=== PATIENT | male | born 1960 | race Caucasian/White ===

== ENCOUNTER → 2024-01-25 06:57 | Outpatient (REF) | payer BC, SELFPAY | LOC: RAD 06:57 | PROVIDERS: ATTENDING PHYSICIAN Family Medicine | DX: R09.89 Other specified symptoms and signs involving the circulatory and respiratory systems (principal); M79.671 Pain in right foot; M79.672 Pain in left foot; E10.22 Type 1 diabetes mellitus with diabetic chronic kidney disease | CPT/HCPCS: 93922; 93925 ==

== ENCOUNTER 2024-03-28 21:59 | Inpatient (IN) | payer BC, SELFPAY ==
[2024-03-28] VITALS (7 sets, daily range): BP systolic 154–191; BP diastolic 54–92; BMI 20.6; BMI 19.2
[2024-03-28 15:42] LABS: Glucose - Point of Care 384 mg/dl (70-99)
--- NOTE | 2024-03-28 15:55 | ED.GENMED ---
History of Present Illness
General
Chief Complaint: Blood Sugar Problem
Time Seen by Provider: 03/28/24 15:55
History of Present Illness
History of Present Illness:
TIME OF INITIAL ENCOUNTER: 4 PM
HPI: The patient is concerned of high blood sugar readings on insulin pump. He changes pump yesterday and started having symptoms after he changed the pump. He changed his pump again today. He bolused himself with a total of 32 units of insulin
since 2 AM today. He has been having hiccups which caused his to be concerned about the possibly of DKA. He has ongoing nausea. He had a kidney transplant a year ago.
EXAM:
GENERAL: The patient appears somewhat weak and uncomfortable
HEENT: Moist oral mucosa
CARDIOVASCULAR: No murmurs, normal heart rate, regular rhythm, No chest wall tenderness
PULMONARY: No respiratory distress, breath sounds are clear and equal
ABDOMEN: Soft with no peritoneal signs, no tenderness
NEUROLOGIC: Excellent strength all extremities, no coordination deficits
PSYCHIATRIC: Appropriate mental status, normal insight and judgement
EXTREMITIES: Nontender, no edema, moves all extremities equally
SKIN: No rash, no lesions
NUMBER AND COMPLEXITY OF PROBLEMS ADDRESSED AT THE ENCOUNTER
� Chronic conditions affecting care: IDDM on insulin pump, renal transplant
� Acute Exacerbation and/or Progression of Chronic Illness: This is an acute problem
� Differential Diagnosis includes: DKA, insulin pump malfunction, hyperglycemia, DELON, dehydration
AMOUNT AND/OR COMPLEXITY OF DATA TO BE REVIEWED AND ANALYZED
� I performed an independent evaluation of and my interpretation is:
EKG:
CT:
X-rays:
Laboratory Studies: Venous pH 7.41, pCO2 45, PaO2 39, white count 14.7, hemoglobin 16.1, BUN 46, creatinine 1.9, bicarb normal at 24
Other:
� Review of other/old records: I reviewed discharge summary from admission from last year�at that time he was ESRD on PD and treated for DKA at that time
� Clinical information was obtained by an independent historian: Spoke to the at bedside
� Prescriptions/Medications Considered but not given:
� Further testing considered but not performed:
RISK OF COMPLICATIONS AND/OR MORBIDITY OR MORTALITY OF PATIENT MANAGEMENT
� Social determinants of health affecting care: Lives at home, has an insulin pump
� Discussion with other providers: Hospitalist for admission at 8:05 PM, Dr. Uribe
� Escalation of care including admission/observation vs risk of discharge considered: See below
ANY OTHER UPDATES:
5:10 PM: The patient feels only minimally improved. Nausea persists. However there is no sign for DKA as his bicarb and pH are normal. Acetone is somewhat elevated though. His creatinine is 1.9 and family states that his most recent creatinine
after transplant was 1.7. He is given 2 L of fluid. He was given Zofran earlier and then was given Reglan with Benadryl.
7:40 PM: I assessed patient. Nausea persists. I offered to consider keeping the patient in the hospital however the patient strongly prefers to go home. He has no abdominal tenderness.
8 PM: After further discussion, patient now agreeing to stay in the hospital. I do recommend that he stays in the hospital as he is somewhat ill-appearing. And overall appearance
Past History
Past History
ED Past Medical History: HTN, IDDM and Renal failure
Social History
Tobacco: Non-smoker
Alcohol: None
Phy Exam
Physical Exam
Physical Exam:
See HPI
Course
Orders/Labs/Results
Orders:
Orders
03/28/24 15:57
0.9% Sodium Chloride 1000 ml [Nss] 1,000 ml IV BOLUS
03/28/24 16:04
Acetone [B-Hydroxybutyrate] Urgent
Complete Blood Count/With Diff Urgent
Comprehensive Metabolic Panel Urgent
03/28/24 16:06
Ondansetron Injectable [Zofran] 4 mg IV NOW STA
03/28/24 16:07
Ondansetron Injectable [Zofran] 4 mg .ROUTE .STK-MED ONE
03/28/24 16:11
Venous Blood Gas Urgent
%Oxygen/Room Air: room air
03/28/24 17:21
0.9% Sodium Chloride 1000 ml [Nss] 1,000 ml IV BOLUS
Diphenhydramine [Benadryl] 25 mg IV NOW STA
Metoclopramide [Reglan] 10 mg IV NOW STA
03/28/24 17:24
Bedside Glucose- Treatment ONCE
03/28/24 19:31
Ondansetron Injectable [Zofran] 4 mg IV NOW STA
Abnormal Lab Results
03/28/24 03/28/24 03/28/24
15:40 16:04 16:11
WBC 14.7 H 10^3/uL
(4.8-10.8)
Abs Immat Gran (auto) 0.1 H 10^3/uL
(0-0.05)
Absolute Neuts (auto) 13.3 H 10^3/uL
(1.4-6.5)
Absolute Lymphs (auto) 0.7 L 10^3/uL
(1.2-3.4)
Neutrophils % 90.5 H %
(42.2-75.2)
Lymphocytes % 4.8 L %
(20.5-51.1)
VBG HCO3 28.5 H mmol/L
(22-27)
Chloride 97 L mmol/L
(98-107)
BUN 46 H mg/dl
(9-20)
Creatinine 1.9 H mg/dL
(0.7-1.3)
Glucose 401 H mg/dl
(70-99)
Calcium 10.3 H mg/dl
(8.4-10.2)
Albumin 5.2 H g/dl
(3.5-5.0)
B-Hydroxybutyrate 1.67 H mmol/L
(0.02-0.27)
POC Glucose 384 H mg/dl
(70-99)
03/28/24
17:50
WBC
Abs Immat Gran (auto)
Absolute Neuts (auto)
Absolute Lymphs (auto)
Neutrophils %
Lymphocytes %
VBG HCO3
Chloride
BUN
Creatinine
Glucose
Calcium
Albumin
B-Hydroxybutyrate
POC Glucose 261 H mg/dl
(70-99)
03/28/24 16:04
03/28/24 16:04
Vital Signs
Initial and Last Documented VS:
Initial Vital Signs
Temp Pulse Resp BP Pulse Ox
36.7 C 76 16 177/85 98
03/28/24 15:36 03/28/24 15:36 03/28/24 15:36 03/28/24 15:36 03/28/24 15:36
Last Documented Vital Signs
Temp Pulse Resp BP Pulse Ox
36.9 C 86 19 175/92 99
03/28/24 18:04 03/28/24 18:30 03/28/24 18:30 03/28/24 18:01 03/28/24 18:30
*Critical Care Note
Total Time (30-74mins, 75-104mins- exclusive of procedures): Not Applicable
ED Attending Note
-
Portions of this chart may have been created with voice recognition software.� Occasional wrong word or��sound alike� substitutions may have occurred due to the inherent limitations of voice recognition software.
Discharge Plan
Departure
Patient Disposition: Admit
Date of Disposition: 03/28/24
Time of Disposition: 19:35
Presentation/result/management discussed w/ accepting MD/DO: Hospitalist
Patient with high blood pressure during this ER visit?: Yes
Discharge Problem:
Nausea & vomiting
Instructions: BLOOD PRESSURE, Acute Nausea and Vomiting
Prescriptions:
New
ondansetron HCl 4 mg tablet
4 mg PO Q8H PRN (Reason: nausea and vomiting) Qty: 14 0RF
No Action
furosemide 40 mg Tablet
80 mg PO BID
atorvastatin 20 mg Tablet
20 mg PO HS
labetalol 200 mg Tablet
200 mg PO BID
gabapentin 300 mg Capsule
300 mg PO HS
hydralazine 50 mg tablet
50 mg PO BID
Pt Own Insulin Pump
1 dose SC .CONTINUOUS
Patient Comments:
05/01/22 Per patient/pharmacy uses novolog insulin in pump. Counts carbs and gives himself a bolus with meals.Has basal
cephalexin 250 mg Capsule
250 mg PO . DIRECTED
Rx Instructions:
Take 1 capsule TID x 3 days for possible PD catheter contamination, as directed by PD nurse
tamsulosin 0.4 mg Capsule
0.4 mg PO DAILY Qty: 30 0RF
Referrals:
Javier Jason MD [Family Provider] -
Activity Restrictions/Additional Instructions:
The cause of your symptoms is unclear but could be related to earlier insulin pump malfunction or viral syndrome. Your white blood cell count is high however you do not have any tenderness on reexamination. Your creatinine is 1.9. We did give you
2 rounds of Zofran tonight as well as a dose of Reglan.
Interventions
Interventions:
*Risk Screen - Suicide Last Done: 03/28/24 15:36
*General Assessment Last Done: 03/28/24 16:02
*Neglect/Abuse Screening Last Done: 03/28/24 15:36
*ED COVID-19 Vaccine History Last Done: 03/28/24 16:02
ED- Neurological Assessment Last Done: 03/28/24 16:02
Discharge Date and Time
Print Language: CAMEROONIAN
[2024-03-28] MEDS: ZOFRAN 4 MG IV ×2 (16:07→20:18)
[2024-03-28] MEDS: NSS 1000 IV ×3 (16:08→21:52)
[2024-03-28 16:16] LABS: % Basophils 0.2 % (0-2); % Immature Granulocytes 0.4 % (0-0.5); % Lymphocytes 4.8 % (20.5-51.1); % Monocytes 4.1 % (1.7-9.3); % Neutrophils 90.5 % (42.2-75.2); Absolute Immature Granulocytes 0.1 10^3/uL (0-0.05); Absolute Lymphocytes 0.7 10^3/uL (1.2-3.4); Absolute Monocytes 0.6 10^3/uL (0.1-0.6); Absolute Neutrophils 13.3 10^3/uL (1.4-6.5); Hematocrit 48.6 % (39.0-52.0); Hemoglobin 16.1 g/dL (13.0-18.0); Mean Corp Hgb Conc. 33.1 g/dL (33.0-37.0); Mean Corpuscular Hgb 29.1 pg (27.0-31.0); Mean Corpuscular Volume 87.9 fL (80.0-94.0); Mean Platelet Volume 9.4 fL (7.4-10.4); Nucleated Red Blood Cells % 0 % (-); Platelet Count 264 10^3/uL (130-400); Red Blood Cell Count 5.53 10^6/uL (4.70-6.10); Red Cell Dist. Width 12.9 % (11.5-14.5); White Blood Cell Count 14.7 10^3/uL (4.8-10.8)
[2024-03-28 16:19] LABS: Venous Blood Gas B.E. 3.1 mmol/L (-4 to +4); Venous Blood Gas HCO3 28.5 mmol/L (22-27); Venous Blood Gas O2 Sat % 71.6 %; Venous Blood Gas pCO2 45 mmHg (35-48); Venous Blood Gas pH 7.41 (7.32-7.43); Venous Blood Gas pO2 39 mmHg (30-50)
[2024-03-28 16:28] LABS: ALT (SGPT) 38 U/L (0-50); AST (SGOT) 33 U/L (17-59); Albumin 5.2 g/dl (3.5-5.0); Alkaline Phosphatase 119 U/L (38-126); Blood Urea Nitrogen 46 mg/dl (9-20); Calcium 10.3 mg/dl (8.4-10.2); Carbon Dioxide 24 mmol/L (22-30); Chloride 97 mmol/L (98-107); Estimated Creatinine Clearance 38 ml/min; Glucose 401 mg/dl (70-99); Potassium 4.3 mmol/L (3.5-5.1); Sodium 137 mmol/L (135-145); Total Bilirubin 1.3 mg/dl (0.2-1.3); Total Protein 7.7 g/dl (6.3-8.2); eGFR 38.91
[2024-03-28 16:42] LABS: B-Hydroxybutyrate 1.67 mmol/L (0.02-0.27)
[2024-03-28] MEDS: BENADRYL 25 MG IV (17:49)
[2024-03-28] MEDS: REGLAN 10 MG IV (17:49)
[2024-03-28 17:52] LABS: Glucose - Point of Care 261 mg/dl (70-99)
[2024-03-28 21:16] LABS: Glucose - Point of Care 304 mg/dl (70-99)
--- NOTE | 2024-03-28 21:35 | HPS.HSE ---
Family Physician
-
Family Physician: Javier Jason
Chief Complaint
-
Vomiting and Elevated Blood Sugar
History of Present Illness
Patient is a 64 y/o male past medical history of IDDM, hypertension and renal transplant who presents with vomiting and elevated blood sugar. Patient reports he changed his insulin pump yesterday. Yesterday afternoon he started experiencing
elevated blood sugars and intractable vomiting. Symptoms persisted today and he changed his insulin pump again. Due to persistent vomiting he came to the emergency department for evaluation. He denies abdominal paim or diarrhea. He denies
fevers, sweats or chills.
Medical History
Past Medical History
Past Medical History: Reports Other
Additional Past Medical History:
ESRD s/p Renal Transplant
Insulin Dependent Diabetes Mellitus
Diabetic Neuropathy
Essential Hypertension
Hyperlipidemia
Past Surgical History: Reports Other
Additional Past Surgical History:
Renal Transplant
Social History
Tobacco: Non-smoker
Alcohol: Occasional
Personal:
Living: With Family
Family History
Family History: Not pertinent
Allergies / Home Medications
Allergies reflects when Allergies were last updated in [facility].
Home Medications with original date entered in [facility]
Allergy/Medication List:
Allergies
Allergy/AdvReac Type Severity Reaction Status Date / Time
No Known Allergies Allergy Verified 03/28/24 15:43
Home Medications
Pt Own Insulin Pump 1 dose SC .CONTINUOUS Diabetes 04/06/22
tamsulosin 0.4 mg capsule 0.4 mg PO DAILY #30 caps 08/19/22
atorvastatin 10 mg tablet 10 mg PO HS 03/28/24
gabapentin 100 mg capsule 100 mg PO DAILY 03/28/24
gabapentin 100 mg capsule 200 mg PO QPM 03/28/24
losartan 50 mg tablet 50 mg PO DAILY 03/28/24
prednisone 2.5 mg tablet 7.5 mg PO DAILY 03/28/24
tacrolimus 4 mg tablet,extended release 24 hr 4 mg PO DAILY 03/28/24
Review of Systems
-
A 12 point ROS was completed and negative except as noted: Yes
Constitutional: Denies Fever or Chills
Respiratory: Denies Cough or Trouble Breathing
Cardiac: Denies Chest Pain or Palpitations
Abdomen/GI: Reports See HPI
Physical Exam
Vital Signs
Vital Signs
Temp Pulse Resp BP Pulse Ox
98.5 F 83 20 173/67 97
03/28/24 18:04 03/28/24 20:45 03/28/24 20:45 03/28/24 20:00 03/28/24 19:30
Physical Exam
General: Comfortable and Conversant
HEENT: NormoCephalic, Anicteric and Atraumatic
Respiratory: Clear and Non Labored Respirations
Cardiac: S1/S2 and Regular Rhythm
GI: Soft and Non Tender
Rectal: Deferred by Provider
Musculoskeletal: No Clubbing, No Cyanosis and No Edema
Skin: Warm and Dry
Neuro: Awake, Alert, Oriented and Nonfocal/grossly intact
Psych: Calm
Laboratory Results
-
03/28/24 16:04
03/28/24 16:04
Laboratory Results
Total Bilirubin 1.3 mg/dl (0.2-1.3) 03/28/24 16:04
AST 33 U/L (17-59) 03/28/24 16:04
ALT 38 U/L (0-50) 03/28/24 16:04
Alkaline Phosphatase 119 U/L (38-126) 03/28/24 16:04
Data Reviewed
-
Lab Data: Labs Reviewed by me
Old Records: Reviewed
Impression/Plan
-
Hyperosmolar Hyperglycemic State secondary to Insulin Pump Malfunction
-Insulin pump tubing exchanged prior to arrival and sugars are now improving
-Continue patient's own insulin pump
-Continue IVFs
-Monitor sugars closely
Persistent Vomiting, now improving
-Allow sips/chips - Advance to clears if tolerates
-Continue Zofran
-Check tacrolimus level
Renal Transplant
-Continue prednisone and tacrolimus
Essential Hypertension
-Continue losartan
Hyperlipidemia
-Continue atorvastatin
Diabetic Neuropathy
-Continue gabapentin
BPH
-Continue tamsulosin
DVT proph: SC Heparin
Code Status: Full Code
[2024-03-28] MEDS: FLUSH (NSS) 1 FLUSH IV (21:53)
--- NOTE | 2024-03-28 21:59 | W.PN.UPDATE ---
Update Note
Progress Note Update
Patient seen in conjunction with ARIEL. I agree with the final history and physical as well as assessment and plan.
This is a 64-year-old male who has end-stage kidney disease status post kidney transplant about a year ago currently on tacrolimus and prednisone with a baseline creatinine of around 1.5 on last check who also has past medical history significant
for hypertension and type 1 diabetes on insulin pump presenting to the emergency department with persistent nausea vomiting and hyperglycemia.
Patient apparently had been in usual state of health up until changing his insulin pump insertion yesterday. Since then his blood sugars has been rising to as high as 600 at home. He spouse had to give him up to 32 units of additional insulin. He
then changed the insertion site and gave himself insulin via pump before coming to the emergency department. He has not had additional insulin in the emergency department.
His initial blood glucose was 400, he is now at 300 after giving himself insulin via the pump. Vital signs showed hypertension with a blood pressure 170/60 pulse of 83 he was afebrile and satting 97% on room air. Leukocytosis to 14,000 but
otherwise CBC was unremarkable. The electrolytes were stable with a bicarb of 24, BUN of 46 and a creatinine of 1.7. Beta-hydroxybutyrate is elevated at 1.9 but patient has a normal bicarb and normal pH on ABG. No evidence of DKA otherwise.
Plan
Uncontrolled hyperglycemia 2/2 pump malfunction. Pump appears to be working now but patient needed several doses of antiemetics
- admit to med/surg
- sips and ice chips for now
- fingerstick glucose q 2 hours
- patient continue to use his pump for now with basal insulin running and giving himself sliding scale doses q 2 hours
- advance diet in am
- continue aggressive IV hydration
- continue tac/prednisone in am
- check tac level
- nephrology consult
DVT PPX - heparin sq
Code status - full code
[2024-03-28 23:04] LABS: Glucose - Point of Care 334 mg/dl (70-99)
[2024-03-28] MEDS: LIPITOR 10 MG PO (23:33)
[2024-03-28] MEDS: HEPARIN 5000 UNITS SC (23:33)
[2024-03-28] MEDS: PT'S OWN INSULIN PUMP - HumaLOG 5 UNIT SC (23:35)
[2024-03-29] VITALS (10 sets, daily range): BP systolic 124–177; BP diastolic 65–82
--- NOTE | 2024-03-29 00:19 | PTCARENOTE ---
Patient arrived to unit via stretcher around 23:00 with dx of Intractable Nausea, hyperglycemia. Patient AAOx3. Pleasant and cooperative with care. Denies pain but continues to feel nauseous. IVF infusing to Right AC. Oriented to unto. Call galvin
within reach.
[2024-03-29 01:19] LABS: Glucose - Point of Care 438 mg/dl (70-99)
[2024-03-29 01:56] LABS: Glucose 476 mg/dl (70-99)
[2024-03-29] MEDS: PT'S OWN INSULIN PUMP - HumaLOG 7.9 UNIT SC (02:03)
[2024-03-29] MEDS: ZOFRAN 4 MG IV ×4 (02:05→20:45)
[2024-03-29 03:16] LABS: Glucose - Point of Care 389 mg/dl (70-99)
[2024-03-29 05:07] LABS: Glucose - Point of Care 361 mg/dl (70-99)
[2024-03-29 06:41] LABS: Blood Urea Nitrogen 43 mg/dl (9-20); Calcium 9.4 mg/dl (8.4-10.2); Carbon Dioxide 19 mmol/L (22-30); Chloride 100 mmol/L (98-107); Estimated Creatinine Clearance 36 ml/min; Glucose 451 mg/dl (70-99); Sodium 142 mmol/L (135-145); eGFR 38.91
--- NOTE | 2024-03-29 07:09 | W.PN.UPDATE ---
Update Note
Progress Note Update
Patient glucose uncontrolled overnight. AM venous draw 451, Anion gap 23, consistent with mild DKA. Patient own insulin pump to be disconnected. Patient started on insulin gtt and transferred to IMU.
[2024-03-29] MEDS: NOVOLIN R INSULIN INFUSION 100 IV (08:17)
--- NOTE | 2024-03-29 08:30 | PTCARENOTE ---
Pt transferred to IMU for insulin drip per order. Traveled via bed, no distress noted. Report given to SIMON Barroso.
[2024-03-29 08:31] LABS: Glucose - Point of Care 474 mg/dl (70-99)
--- NOTE | 2024-03-29 08:45 | PTCARENOTE ---
patient received from [address] [facility] in bed; able to stand and pivot to IMU unit bed. flushed and mildly diaphoretic but afebrile. vital signs stable, sinus tachycardia in low 100's. IV fluids infusing at 150 ml/hr. awake, alert, oriented x 3. complaining
of nausea. accucheck 'hi' on arrival to unit; stat venous glucose resulted at 474. insulin drip initiated at 6 units/hr. zofran 4 mg given IV. patient oriented to the room. call galvin in reach. bed in lowest position. will continue to closely
monitor. Q1hr accuchecks with insulin drip titration. insulin pump off/removed by [address] nurse.
[2024-03-29 08:53] LABS: Blood Urea Nitrogen 45 mg/dl (9-20); Calcium 9.5 mg/dl (8.4-10.2); Carbon Dioxide 16 mmol/L (22-30); Chloride 100 mmol/L (98-107); Estimated Creatinine Clearance 32 ml/min; Glucose 552 mg/dl (70-99); Potassium 5.5 mmol/L (3.5-5.1); Sodium 142 mmol/L (135-145)
[2024-03-29 09:30] LABS: Glucose - Point of Care 437 mg/dl (70-99)
[2024-03-29] MEDS: NSS with KCL 20 MEQ 1000 IV (09:33)
[2024-03-29] MEDS: PT'S OWN INSULIN PUMP - HumaLOG SC (09:34)
[2024-03-29 09:55] LABS: Glucose 500 mg/dl (70-99)
--- NOTE | 2024-03-29 10:17 | W.PN.HOSP.TC ---
Today's Communication/Plan
-
see A/P
Assessment / Plan
Assessment / Plan
HPI: 64 y/o male past medical history of IDDM, hypertension and renal transplant who presented with vomiting and elevated blood sugar.
Patient reports he changed his insulin pump the day [employer]. In the afternoon he started experiencing elevated blood sugars and intractable vomiting.
Symptoms persisted and he changed his insulin pump again. Due to persistent vomiting he came to the emergency department for evaluation. He denies abdominal pain or diarrhea. He denies fevers, sweats or chills.
A/P:
# DKA with Anion gap metabolic acidosis, secondary to Insulin Pump Malfunction
Started insulin drip for DKA
check BMP Q4H until gap closes
NPO with IVF NSS for now (hold further NSS with K with mild hyperkalemia)
Consider replacing back to insulin pump when gap closes
# Persistent Vomiting
Continue Zofran PRN
# Renal Transplant
Continue prednisone and tacrolimus
Check tacrolimus level
# Essential Hypertension
Continue losartan
# Hyperlipidemia
Continue atorvastatin
# Diabetic Neuropathy
Continue gabapentin
# BPH
Continue tamsulosin
DVT proph: SC Heparin
Code Status: Full Code
DW RN
Anticipated Discharge: 24 - 48 hours
Subjective/Interval History
-
Date of Service: March 29, 2024
Objective Data
-
Labs:
Laboratory Results
03/29/24 03/29/24 03/29/24
01:27 06:13 08:14
Sodium 142 142
Potassium 5.0 5.5 H
Chloride 100 100
Carbon Dioxide 19 L 16 L
BUN 43 H 45 H
Creatinine 1.9 H 2.1 H
Glucose 476 H* 451 H* 552 H*
Calcium 9.4 9.5
03/29/24 03/29/24 03/29/24
09:26 14:00 18:00
Sodium Pending Pending
Potassium Pending Pending
Chloride Pending Pending
Carbon Dioxide Pending Pending
BUN Pending Pending
Creatinine Pending Pending
Glucose 500 H* Pending Pending
Calcium Pending Pending
03/29/24
22:00
Sodium Pending
Potassium Pending
Chloride Pending
Carbon Dioxide Pending
BUN Pending
Creatinine Pending
Glucose Pending
Calcium Pending
Vital Signs:
Vital Signs
Temp Pulse Resp BP Pulse Ox
36.7 C 104 18 171/82 98
03/29/24 03:31 03/29/24 03:31 03/29/24 03:31 03/29/24 03:31 03/29/24 03:31
I&O
03/28/24 03/29/24 03/30/24
06:59 06:59 06:59
Intake Total 980 / 980
Output Total 450 / 450 250 / 250
Balance 530 / 530 -250 / -250
Review of Systems
-
Abdomen/GI: Reports Nausea and Vomiting
Physical Exam
-
General: Well Developed, Well Nourished, No Apparent Distress and Comfortable
HEENT: Normocephalic and Atraumatic
Respiratory: Clear to Auscultation and Non Labored Respirations; Negative Wheezes or Accessory Resp Muscle Use
Cardiac: Regular Rhythm, S1/S2 and Tachycardic
Breast: Deferred by me
GI: Soft, Nontender and Nondistended
Rectal: Deferred by Provider
Genito-urinary: Deferred by me
Musculoskeletal: No Clubbing, No Cyanosis and No Edema
Skin: Warm
Neuro: Awake
Psych: Calm and Intact Judgement/Insight
Data Reviewed
-
Labs: Labs Reviewed by me
[2024-03-29] MEDS: NEURONTIN 100 MG PO (10:23)
[2024-03-29] MEDS: DELTASONE 7.5 MG PO (10:24)
[2024-03-29] MEDS: FLOMAX 0.4 MG PO (10:25)
[2024-03-29] MEDS: ENVARSUS XR 4 MG PO (10:25)
[2024-03-29] MEDS: HEPARIN 5000 UNITS SC ×2 (10:27→18:37)
[2024-03-29 10:42] LABS: Glucose - Point of Care 373 mg/dl (70-99)
--- NOTE | 2024-03-29 11:01 | W.CON.NEPH ---
Consultation
-
Date/Time Consultation Requested: 03/28/24 7709
Date/Time Consultation Performed: 03/29/24 1015
Requesting Provider: Janny Bowser
Performing Provider: Harini Allen
Reason for Consultation: h/o K TXP, Delon with CKD
Medical History
-
Chief Complaint: High BG, vomting
History of Present Illness:
64-year-old male who has end-stage kidney disease status post LUR kidney transplant 09/2022 at [facility], baseline cr 1.6-1.[address] Robertson, immunosuppression with Tacrolimus and prednisone, (off myfortic for leucopenia >yr ago) hypertension on
Losartan, and type 1 diabetes with microvascular complications on insulin pump presenting to the emergency department with persistent nausea vomiting and hyperglycemia. Reportedly he had diarrhea for last 2-3week and saw transplant center w/u
reportedly was negative. His tach dose was reduced since levels were elevated. Since his diarrhea improves started with nausea and vomiting with decreased po intake for last few days. He admits not missing his immunosuppression meds. His BG were
really high 600 and says insulin pump was functioning fine before, changed insertion site day before. BG seem to improve with adjusting pump however BG increased again this am with a gap, bicarb 16. Cr on admit was at 1.9 and this am at 2.1, k 5.5,
bg 552. He now switched to insulin gtt and off pump. He reports no fever or cp or sob. no dizziness. No dysuria.
Past Medical History
ESRD s/p LUR Renal Transplant 09/2022
Insulin Dependent Diabetes Mellitus with micro vascular complications
Diabetic Neuropathy
Essential Hypertension
Hyperlipidemia
EBV viremia
albuminuria
Past Surgical History: Other (Renal Transplant, coloic polypectomy, cataract bilat, right sub mandibular LN excision)
Social History
Tobacco: Non-Smoker
Alcohol: Occasional
Personal:
Living: With Family
Family History
M with ESRD, HTN , CAD, DM diead at 85
F at 79, CVA, colon ca
Allergies / Home Medications
Allergy/AdvReac Type Severity Reaction Status Date / Time
No Known Allergies Allergy Verified 03/28/24 15:43
�Medication �Instructions �Recorded �Confirmed �Type
Pt Own Insulin Pump 1 dose SC .CONTINUOUS Diabetes 04/06/22 03/28/24 History
tamsulosin 0.4 mg capsule 0.4 mg PO DAILY #30 caps 08/19/22 03/28/24 Rx
atorvastatin 10 mg tablet 10 mg PO HS 03/28/24 03/28/24 History
gabapentin 100 mg capsule 100 mg PO DAILY 03/28/24 03/28/24 History
gabapentin 100 mg capsule 200 mg PO QPM 03/28/24 03/28/24 History
losartan 50 mg tablet 50 mg PO DAILY 03/28/24 03/28/24 History
prednisone 2.5 mg tablet 7.5 mg PO DAILY 03/28/24 03/28/24 History
tacrolimus 4 mg tablet,extended 4 mg PO DAILY 03/28/24 03/28/24 History
release 24 hr
Review of Systems
-
All complete 12 point ROS have been inquired ans found negative other than stated in HPI
Physical Exam
Vital Signs
Vital Signs
Temp Pulse Resp BP Pulse Ox
98.5 F 104 18 171/82 98
03/29/24 07:32 03/29/24 03:31 03/29/24 03:31 03/29/24 03:31 03/29/24 03:31
Lab Results
WBC 14.7 10^3/uL (4.8-10.8) H 03/28/24 16:04
RBC 5.53 10^6/uL (4.70-6.10) 03/28/24 16:04
Hgb 16.1 g/dL (13.0-18.0) 03/28/24 16:04
Hct 48.6 % (39.0-52.0) 03/28/24 16:04
Plt Count 264 10^3/uL (130-400) 03/28/24 16:04
eGFR 34.50 03/29/24 08:14
Albumin 5.2 g/dl (3.5-5.0) H 03/28/24 16:04
Labs
03/28/24 16:04
Abnormal Lab Results
03/28/24 03/28/24 03/28/24
15:40 16:04 16:11
WBC 14.7 H
Abs Immat Gran (auto) 0.1 H
Absolute Neuts (auto) 13.3 H
Absolute Lymphs (auto) 0.7 L
Neutrophils % 90.5 H
Lymphocytes % 4.8 L
VBG HCO3 28.5 H
Potassium
Chloride 97 L
Carbon Dioxide
BUN 46 H
Creatinine 1.9 H
Glucose 401 H
Calcium 10.3 H
Albumin 5.2 H
B-Hydroxybutyrate 1.67 H
POC Glucose 384 H
03/28/24 03/28/24 03/28/24
17:50 21:14 23:02
WBC
Abs Immat Gran (auto)
Absolute Neuts (auto)
Absolute Lymphs (auto)
Neutrophils %
Lymphocytes %
VBG HCO3
Potassium
Chloride
Carbon Dioxide
BUN
Creatinine
Glucose
Calcium
Albumin
B-Hydroxybutyrate
POC Glucose 261 H 304 H 334 H
03/29/24 03/29/24 03/29/24
01:18 01:27 03:15
WBC
Abs Immat Gran (auto)
Absolute Neuts (auto)
Absolute Lymphs (auto)
Neutrophils %
Lymphocytes %
VBG HCO3
Potassium
Chloride
Carbon Dioxide
BUN
Creatinine
Glucose 476 H*
Calcium
Albumin
B-Hydroxybutyrate
POC Glucose 438 H 389 H
03/29/24 03/29/24 03/29/24
05:05 06:13 08:09
WBC
Abs Immat Gran (auto)
Absolute Neuts (auto)
Absolute Lymphs (auto)
Neutrophils %
Lymphocytes %
VBG HCO3
Potassium
Chloride
Carbon Dioxide 19 L
BUN 43 H
Creatinine 1.9 H
Glucose 451 H*
Calcium
Albumin
B-Hydroxybutyrate
POC Glucose 361 H 474 H*
03/29/24 03/29/24 03/29/24
08:14 09:16 09:26
WBC
Abs Immat Gran (auto)
Absolute Neuts (auto)
Absolute Lymphs (auto)
Neutrophils %
Lymphocytes %
VBG HCO3
Potassium 5.5 H
Chloride
Carbon Dioxide 16 L
BUN 45 H
Creatinine 2.1 H
Glucose 552 H* 500 H*
Calcium
Albumin
B-Hydroxybutyrate
POC Glucose 437 H
03/29/24
10:30
WBC
Abs Immat Gran (auto)
Absolute Neuts (auto)
Absolute Lymphs (auto)
Neutrophils %
Lymphocytes %
VBG HCO3
Potassium
Chloride
Carbon Dioxide
BUN
Creatinine
Glucose
Calcium
Albumin
B-Hydroxybutyrate
POC Glucose 373 H
Physical Exam
General: Awake, Alert, Oriented, AOx3 and No Distress
HEENT: EOMI, Anicteric, Conjunctivae Clear and Facial Symmetry
Respiratory: Clear, Normal Excursion and Nonlabored Respirations
Cardiac: S1/S2 and Regular Rate/Rhythm
Breast: Deferred by me
Abdomen: Soft, Nontender and Nondistended
Musculoskeletal: No Cyanosis and No Edema
Skin: No Rash and Other (flushed face-hb 16)
Neuro: Nonfocal/Grossly Intact
Psych: Mood/afflect pleasant, Insight/judgement good and Appropriate
Data Reviewed
-
Labs: Labs Reviewed by me and Discussed with Patient
Assessment/Plan
-
Assessment:
DKA
DELON
ESRD s/p [facility] 09/2022-Dr Robertson
CKD -baseline cr 1.6-1.9
hyperkalemia
Persistent Vomiting
Leucocytosis
Hyperlipidemia
Diabetic Neuropathy
BPH
HTN
DM1 with microvascular complications
Albuminuria
EBV viremia
Plan:
A/w DKA, likely malfunctioning insulin pump
DELON-suspect prerenal based on history
check UA and bladder scan
cont isotonic fluids and monitor UOP
cont IS meds, Tac and prednisone-check tac level in am
Bp stable , hold ARB
expect to see improvement of potassium once BG controlled
note he was on Lokelma QOD in out pt-not on the list now
insulin gtt per primary
follow labs closely
d/w pt
[2024-03-29] MEDS: NSS 1000 IV ×2 (11:08→18:51)
[2024-03-29 11:26] LABS: Glucose - Point of Care 327 mg/dl (70-99)
[2024-03-29 12:19] LABS: Glucose - Point of Care 321 mg/dl (70-99)
[2024-03-29 13:18] LABS: Glucose - Point of Care 298 mg/dl (70-99)
[2024-03-29 13:32] LABS: Glycohemoglobin (HgbA1c) 6.7 % (4.0-5.6)
--- NOTE | 2024-03-29 13:55 | PTCARENOTE ---
orders for bladder scan. voided 200 ml. post void residual >644 ml. patient stating he has issues with incomplete emptying when not standing or sitting on toilet (using urinal in bed). pt assisted to bedside commode and voided 300 ml additional.
continuing to monitor at this time. urinalysis sent
[2024-03-29 14:18] LABS: Urine Albumin 1+ (Neg - Trace); Urine Bilirubin Negative (Negative); Urine Character Clear (Clear); Urine Color Yellow; Urine Glucose 3+ (Negative); Urine Ketone 3+ (Negative); Urine Leukocyte Negative (Negative); Urine Nitrite Negative (Negative); Urine Occult Blood 2+ (Negative); Urine Specific Gravity 1.015 (<1.030); Urine Urobilinogen Negative (Neg - 1+)
[2024-03-29 14:30] LABS: Blood Urea Nitrogen 46 mg/dl (9-20); Calcium 9.7 mg/dl (8.4-10.2); Carbon Dioxide 28 mmol/L (22-30); Chloride 104 mmol/L (98-107); Estimated Creatinine Clearance 34 ml/min; Glucose 257 mg/dl (70-99); Potassium 4.4 mmol/L (3.5-5.1); Sodium 145 mmol/L (135-145); eGFR 36.58
[2024-03-29 14:31] LABS: Urine Red Blood Cell 0-2 /HPF (0-2); Urine Squamous Cell 0-2 /LPF (Few); Urine White Cell 0-2 /HPF (0-5)
[2024-03-29 14:33] LABS: Glucose - Point of Care 203 mg/dl (70-99)
--- NOTE | 2024-03-29 15:53 | PTCARENOTE ---
pt vomited once this shift; zofran given x 2. insulin drip weaned to 2 units/hr over the shift for improving blood glucose. 1600 BMP shows anion gap improved to 13. 1400 ml intake; 550 ml urinary output. IV NSS at 150 ml/hr. pt stating he feels
better overall. remains sinus tachy with rates in low 100's;Vital signs otherwise stable. Continuing to monitor
[2024-03-29 15:56] LABS: Glucose - Point of Care 184 mg/dl (70-99)
[2024-03-29 17:31] LABS: Glucose - Point of Care 159 mg/dl (70-99)
[2024-03-29] MEDS: NEURONTIN 200 MG PO (18:39)
[2024-03-29 18:53] LABS: Glucose - Point of Care 155 mg/dl (70-99)
[2024-03-29 19:30] LABS: Blood Urea Nitrogen 45 mg/dl (9-20); Calcium 9.6 mg/dl (8.4-10.2); Carbon Dioxide 30 mmol/L (22-30); Chloride 105 mmol/L (98-107); Estimated Creatinine Clearance 34 ml/min; Glucose 174 mg/dl (70-99); Potassium 4.1 mmol/L (3.5-5.1); Sodium 145 mmol/L (135-145); eGFR 36.58
[2024-03-29 20:13] LABS: Glucose - Point of Care 148 mg/dl (70-99)
--- NOTE | 2024-03-29 21:28 | W.PN.UPDATE ---
Update Note
Progress Note Update
Current anion gap is 10, will give lantus 10 units, stop insulin drip in hour, and start ISS.
[2024-03-29 21:42] LABS: Glucose - Point of Care 142 mg/dl (70-99)
[2024-03-29] MEDS: LANTUS 0.1 UNITS SC (21:43)
[2024-03-29] MEDS: D5/0.45%NSS with KCL 20 MEQ 1000 IV (21:44)
[2024-03-29] MEDS: LIPITOR PO (22:23)
[2024-03-29 22:31] LABS: Glucose - Point of Care 132 mg/dl (70-99)
--- NOTE | 2024-03-29 23:00 | PTCARENOTE ---
Assumed care for patient overnight, received report from yash RN. Pt had one episode of vomiting. Pt experiencing nausea and hiccups, PRN Zofran given see JUN. Insulin gtt weaned down to 1 unit/hr. Anion gap 10. Insulin gtt d/c'd. Blood sugar
132. Ordered Lantus administered see JUN. Pt remains NPO with sips of clear, unable to take PO medication due to N/V. D5W/0.45% NSS gtt infusing. Pt has call galvin within reach and is able to make needs known.
[2024-03-29 23:26] LABS: Glucose - Point of Care 173 mg/dl (70-99)
[2024-03-30] VITALS (15 sets, daily range): BP systolic 150–183; BP diastolic 63–97
[2024-03-30] LABS: Blood Urea Nitrogen 44 mg/dl (9-20); Calcium 9.1 mg/dl (8.4-10.2); Carbon Dioxide 25 mmol/L (22-30); Chloride 108 mmol/L (98-107); Estimated Creatinine Clearance 38 ml/min; Glucose 186 mg/dl (70-99); Potassium 4.4 mmol/L (3.5-5.1); Sodium 144 mmol/L (135-145); eGFR 41.51
[2024-03-30] MEDS: HEPARIN 5000 UNITS SC ×4 (01:05→23:37)
[2024-03-30 01:30] LABS: Glucose - Point of Care 255 mg/dl (70-99)
[2024-03-30] MEDS: ZOFRAN 4 MG IV (03:28)
[2024-03-30 03:35] LABS: Glucose - Point of Care 311 mg/dl (70-99)
[2024-03-30] MEDS: NOVOLOG FLEXPEN 4 UNITS SC (03:58)
[2024-03-30 05:02] LABS: Hematocrit 46.8 % (39.0-52.0); Hemoglobin 15.3 g/dL (13.0-18.0); Mean Corp Hgb Conc. 32.7 g/dL (33.0-37.0); Mean Corpuscular Hgb 29.5 pg (27.0-31.0); Mean Corpuscular Volume 90.3 fL (80.0-94.0); Mean Platelet Volume 9.6 fL (7.4-10.4); Platelet Count 240 10^3/uL (130-400); Red Blood Cell Count 5.18 10^6/uL (4.70-6.10); Red Cell Dist. Width 13.2 % (11.5-14.5); White Blood Cell Count 21.4 10^3/uL (4.8-10.8)
[2024-03-30 05:24] LABS: Blood Urea Nitrogen 45 mg/dl (9-20); Carbon Dioxide 22 mmol/L (22-30); Chloride 105 mmol/L (98-107); Estimated Creatinine Clearance 38 ml/min; Glucose 434 mg/dl (70-99); Potassium 4.9 mmol/L (3.5-5.1); Sodium 143 mmol/L (135-145); eGFR 41.51
[2024-03-30 06:18] LABS: Glucose - Point of Care 350 mg/dl (70-99)
[2024-03-30] MEDS: NOVOLOG FLEXPEN-LOW RESISTANCE 5 UNITS SC (06:22)
--- NOTE | 2024-03-30 07:48 | W.PN.HOSP.TC ---
Today's Communication/Plan
-
see A/P
Assessment / Plan
Assessment / Plan
HPI: 64 y/o male past medical history of IDDM, hypertension and renal transplant who presented with vomiting and elevated blood sugar.
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 In the afternoon he started experiencing elevated blood sugars and intractable vomiting.
Symptoms persisted and he changed his insulin pump again. Due to persistent vomiting he came to the emergency department for evaluation. He denies abdominal pain or diarrhea. He denies fevers, sweats or chills.
A/P:
# DKA with Anion gap metabolic acidosis, secondary to Insulin Pump Malfunction
# Persistent Vomiting, resolved
gap closed, off insulin drip
to transition back to own insulin pump
DM HIDE DYER CS to assist with pump transition
# Leucocytosis, suspect reactive and steroid effect
No fever and pt non-toxic appearing
can check blood culture for completeness sake
# Renal Transplant
Continue prednisone and tacrolimus
Check tacrolimus level
# Essential Hypertension
Continue losartan
# Hyperlipidemia
Continue atorvastatin
# Diabetic Neuropathy
Continue gabapentin
# BPH
Continue tamsulosin
DVT proph: SC Heparin
Code Status: Full Code
DW RN
DW DM HIDE DYER
total time spent 51 min
Anticipated Discharge: 24 - 48 hours
Subjective/Interval History
-
Date of Service: March 30, 2024
Objective Data
-
Labs:
Laboratory Results
03/29/24 03/30/24 03/30/24
23:10 02:00 04:30
WBC 21.4 H
Hgb 15.3
Hct 46.8
Plt Count 240
Sodium 144 Cancelled
Potassium 4.4 Cancelled
Chloride 108 H Cancelled
Carbon Dioxide 25 Cancelled
BUN 44 H Cancelled
Creatinine 1.8 H Cancelled
Glucose 186 H Cancelled
Calcium 9.1 Cancelled
03/30/24 03/30/24 03/30/24
04:31 06:00 10:00
WBC
Hgb
Hct
Plt Count
Sodium 143 Cancelled Cancelled
Potassium 4.9 Cancelled Cancelled
Chloride 105 Cancelled Cancelled
Carbon Dioxide 22 Cancelled Cancelled
BUN 45 H Cancelled Cancelled
Creatinine 1.8 H Cancelled Cancelled
Glucose 434 H Cancelled Cancelled
Calcium 9.0 Cancelled Cancelled
Vital Signs:
Vital Signs
Temp Pulse Resp BP Pulse Ox
37.0 C 98 14 153/77 97
03/29/24 23:27 03/30/24 07:30 03/30/24 07:30 03/30/24 06:48 03/30/24 07:30
I&O
03/29/24 03/30/24 03/31/24
06:59 06:59 06:59
Intake Total 980 / 980 2795 / 2795
Output Total 450 / 450 1800 / 1800
Balance 530 / 530 995 / 995
Review of Systems
-
All other systems: Reviewed and negative
Physical Exam
-
General: Well Developed, Well Nourished, No Apparent Distress and Comfortable
HEENT: Normocephalic and Atraumatic
Respiratory: Clear to Auscultation and Non Labored Respirations; Negative Wheezes or Accessory Resp Muscle Use
Cardiac: Regular Rhythm, S1/S2 and Tachycardic
Breast: Deferred by me
GI: Soft, Nontender and Nondistended
Rectal: Deferred by Provider
Genito-urinary: Deferred by me
Musculoskeletal: No Clubbing, No Cyanosis and No Edema
Skin: Warm
Neuro: Awake
Psych: Calm and Intact Judgement/Insight
Data Reviewed
-
Labs: Labs Reviewed by me
[2024-03-30] MEDS: NOVOLOG FLEXPEN-LOW RESISTANCE 4 UNITS SC (08:03)
[2024-03-30] MEDS: ENVARSUS XR 4 MG PO (08:10)
[2024-03-30] MEDS: DELTASONE 7.5 MG PO (08:11)
[2024-03-30] MEDS: NEURONTIN 100 MG PO (08:11)
[2024-03-30 08:12] LABS: Glucose - Point of Care 307 mg/dl (70-99)
[2024-03-30] MEDS: FLOMAX 0.4 MG PO (08:12)
--- NOTE | 2024-03-30 10:30 | PN.DE.MGMTRT ---
Insulin Management
- -
Diabetes Management Consult Insulin pump
Patient admitted 03/28 with blood sugar problem. PMH type 1 diabetes, HTN, renal failure, Kidney transplat 09/22/2022States his blood sugar has been elevated and he can't get it down. Glucose 401 on admission up to 500, GAP of 16 then insulin
infusion started. Prior to admission was using Medtronic insulin pump with smart guard sensor, novolog insulin [id number] Quick set. A1C on admission 6.7.
Insulin drip stopped last night, 10 units lantus administered. Glucose at the time of my visit 397 by sensor. Will resume insulin pump
Patient is awake alert and oriented able to discuss pump management. at bedside also.
Pump settings:
Basal Carb ratio correction target
12am 1.5 10 40 120 - 130
3:30am 1 10 40 120-130
5am 1.2 10 40 120-130
6am 1 10 40 120-130
24 hour basal insulin 25.95
New infusion set inserted, pump sensor calibrated and correction taken 5.9
Patient to deliver all insulin via pump.
Discussed with nurse to recheck glucose in 2 hours, hold lunch until recheck.
Diabetes History
- -
Type of Diabetes: 1
Pre-Admission Diabetes Regimen
03/29/24 03/29/24 03/29/24
14:05 18:00 19:04
Creatinine 2.0 H Cancelled 2.0 H
03/29/24 03/30/24 03/30/24
23:10 02:00 04:31
Creatinine 1.8 H Cancelled 1.8 H
03/30/24 03/30/24
06:00 10:00
Creatinine Cancelled Cancelled
Lab Results
Hemoglobin A1c 6.7 % (4.0-5.6) H 03/29/24 06:13
Insulin Pump Settings
IP Diabetes Regimen
03/29/24 03/29/2403/29/24
10:30 11:14 12:07
Glucose
POC Glucose 373 H 327 H 321 H
03/29/24 03/29/24 03/29/24
13:07 14:05 14:21
Glucose 257 H
POC Glucose 298 H 203 H
03/29/24 03/29/24 03/29/24
15:44 17:20 18:00
Glucose Cancelled
POC Glucose 184 H 159 H
03/29/24 03/29/24 03/29/24
18:36 19:04 20:01
Glucose 174 H
POC Glucose 155 H 148 H
03/29/24 03/29/24 03/29/24
21:31 22:20 23:10
Glucose 186 H
POC Glucose 142 H 132 H
03/29/24 03/30/24 03/30/24
23:15 01:09 02:00
Glucose Cancelled
POC Glucose 173 H 255 H
03/30/24 03/30/24 03/30/24
03:23 04:31 06:00
Glucose 434 H Cancelled
POC Glucose 311 H
03/30/24 03/30/24 03/30/24
06:07 08:00 10:00
Glucose Cancelled
POC Glucose 350 H 307 H
Patient Education
[2024-03-30 10:35] LABS: Glucose - Point of Care 348 mg/dl (70-99)
--- NOTE | 2024-03-30 12:13 | CM ---
Patient with Hx IDDM, renal transplant. Room air. Novolog insulin via patient's own insulin pump. Per nurse assessment; ambulatory in room.
Met with patient and Hanna;
the patient resides with his in a 2 story house with 4 ALONZO.
He was independent in ADLs and ambulation.
Patient is retired.
DME - Insulin pump, Dexcom CGM, Accuchek, SPC
Prior [facility] VN
No prior SNF.
PCP - Dr Dean Randall
[facility]
Offered VN for nurse check and patient declined.
No CM d/c needs identified.
Plan home.
--- NOTE | 2024-03-30 12:14 | W.PN.NEPH.PH ---
Today's Communication / Plan
-
No changes renal function stable on losartan
Assessment/Plan
-
Assessment:
DKA
DELON
ESRD s/p [facility] 09/2022-Dr Robertson
CKD -baseline cr 1.6-1.9
hyperkalemia
Persistent Vomiting
Leucocytosis
Hyperlipidemia
Diabetic Neuropathy
BPH
HTN
DM1 with microvascular complications
Albuminuria
EBV viremia
Plan:
A/w DKA, likely malfunctioning insulin pump
DELON-suspect prerenal based on history
UA bland other than glucosuria
cont isotonic fluids and monitor UOP
cont IS meds, Tac and prednisone-check tac level in am
Bp stable , hold ARB
note he was on [employer] QOD in out pt-not on the list now
d/w pt
Creatinine close to baseline
Tacrolimus level pending
-
-
Date of Service: March 30, 2024
CC / HPI / ROS
-
Chief Complaint:
Nausea vomiting
History of Present Illness:
Acute on chronic kidney disease secondary to DKA osmotic diuresis improved renal function at baseline
Review of Systems:
Denies chest pain shortness of breath
+ poor appetite
Labs
-
Labs:
WBC 21.4 10^3/uL (4.8-10.8) H 03/30/24 04:30
RBC 5.18 10^6/uL (4.70-6.10) 03/30/24 04:30
Hgb 15.3 g/dL (13.0-18.0) 03/30/24 04:30
Hct 46.8 % (39.0-52.0) 03/30/24 04:30
Plt Count 240 10^3/uL (130-400) 03/30/24 04:30
Sodium Cancelled 03/30/24 10:00
Potassium Cancelled 03/30/24 10:00
Chloride Cancelled 03/30/24 10:00
Carbon Dioxide Cancelled 03/30/24 10:00
BUN Cancelled 03/30/24 10:00
Creatinine Cancelled 03/30/24 10:00
eGFR Cancelled 03/30/24 10:00
Glucose Cancelled 03/30/24 10:00
Calcium Cancelled 03/30/24 10:00
Albumin 5.2 g/dl (3.5-5.0) H 03/28/24 16:04
Physical Exam
-
Vital Signs:
Vital Signs
Temp Pulse Resp BP Pulse Ox
97.7 F 96 20 152/68 96
03/30/24 07:05 03/30/24 09:31 03/30/24 09:31 03/30/24 09:31 03/30/24 10:01
Cardiovascular:: Regular rate and rhythm
Respiratory:: Bilateral: CTA
Lung Excursion:: Normal
Abdomen:: Nontender and Soft
Bowel Sounds:: Normal
Extremity Edema:: None: Bilateral:
[2024-03-30] MEDS: COZAAR 50 MG PO (12:31)
[2024-03-30 12:43] LABS: Glucose - Point of Care 283 mg/dl (70-99)
[2024-03-30] MEDS: PT'S OWN INSULIN PUMP - NovoLOG 3.2 UNIT SC (13:45)
--- NOTE | 2024-03-30 14:59 | PTCARENOTE ---
Pt blood sugar this am 348. 4 units of insulin given per low resistance sliding scale. Frozen Pie Maker/PERSONNEL SUPERVISOR Melissa Marin notified. Pt instructed to have bring insulin pump/supplies from home. Melissa Marin notified when arrived and
assisted in placement of new insulin pump. Afternoon blood sugar 283.
--- NOTE | 2024-03-30 15:08 | PTCARENOTE ---
BP @ 12:00 173/91. Dr Wall notified via tiger text. 50mg losartan ordered daily per pt home med list. Repeat BP @ 14:00 150/90.
[2024-03-30 17:54] LABS: Glucose - Point of Care 138 mg/dl (70-99)
[2024-03-30] MEDS: NEURONTIN 200 MG PO (18:11)
[2024-03-30] MEDS: PT'S OWN INSULIN PUMP - NovoLOG 2.7 UNIT SC (18:12)
[2024-03-30] MEDS: TUMS CHEWABLE TABLET 200 MG PO (20:23)
[2024-03-30 21:49] LABS: Glucose - Point of Care 107 mg/dl (70-99)
[2024-03-30] MEDS: LIPITOR 10 MG PO (23:37)
[2024-03-30] MEDS: PT'S OWN INSULIN PUMP - NovoLOG SC (23:41)
[2024-03-31] VITALS (8 sets, daily range): BP systolic 137–169; BP diastolic 65–105; BMI 19.3
[2024-03-31 05:56] LABS: Hematocrit 41.7 % (39.0-52.0); Hemoglobin 13.8 g/dL (13.0-18.0); Mean Corp Hgb Conc. 33.1 g/dL (33.0-37.0); Mean Corpuscular Hgb 29.5 pg (27.0-31.0); Mean Corpuscular Volume 89.1 fL (80.0-94.0); Mean Platelet Volume 9.4 fL (7.4-10.4); Platelet Count 194 10^3/uL (130-400); Red Blood Cell Count 4.68 10^6/uL (4.70-6.10); Red Cell Dist. Width 13.2 % (11.5-14.5); White Blood Cell Count 13.8 10^3/uL (4.8-10.8)
--- NOTE | 2024-03-31 06:12 | PTCARENOTE ---
Pt aaox3. NSR on monitor. Pt complained of indigested. Notified Annika RING SEWER. Received Rx for Tums (see MAR). Heartburn has since resolved. Also notified RING SEWER that pt's blood pressure has been elevated, no new orders at this time. Pt resting in bed
with call galvin in reach.
[2024-03-31 06:22] LABS: Blood Urea Nitrogen 37 mg/dl (9-20); Calcium 8.8 mg/dl (8.4-10.2); Carbon Dioxide 32 mmol/L (22-30); Chloride 102 mmol/L (98-107); Estimated Creatinine Clearance 43 ml/min; Glucose 110 mg/dl (70-99); Potassium 4.1 mmol/L (3.5-5.1); Sodium 137 mmol/L (135-145); eGFR 47.82
--- NOTE | 2024-03-31 07:27 | PN.DE.MGMTRT ---
Insulin Management
- -
03/31/2024 Diabetes Management Consult Insulin pump follow up
Patient admitted 03/28 with blood sugar problem. PMH type 1 diabetes, HTN, renal failure, Kidney transplant 09/22/2022. States his blood sugar has been elevated and he can't get it down. Glucose 401 on admission up to 500, GAP of 16 then insulin
infusion started. Prior to admission was using Medtronic insulin pump with smart guard sensor, novolog insulin with 9mm Quick set. A1C on admission 6.7.
Insulin drip stopped 03/29, 10 units lantus administered. Insulin pump resumed at 10:30 am 03/30.
Patient is awake alert and oriented able to discuss pump management.
Pump settings:
Basal Carb ratio correction target
12am 1.5 10 40 120 - 130
3:30am 1 10 40 120-130
5am 1.2 10 40 120-130
6am 1 10 40 120-130
24 hour basal insulin 25.95
Glucose since pump started 138, 107 and fasting this AM 110. Will make no changes to pump settings.
Patient to deliver all insulin via pump.
Diabetes History
- -
Type of Diabetes: 1
Pre-Admission Diabetes Regimen
03/31/24
05:41
Creatinine 1.6 H
Lab Results
Hemoglobin A1c 6.7 % (4.0-5.6) H 03/29/24 06:13
Insulin Pump Settings
IP Diabetes Regimen
03/30/24 03/30/24 03/30/24
08:00 10:23 12:31
Glucose
POC Glucose 307 H 348 H 283 H
03/30/24 03/30/24 03/31/24
17:41 21:35 05:41
Glucose 110 H
POC Glucose 138 H 107 H
Patient Education
[2024-03-31] MEDS: COZAAR 50 MG PO (07:50)
[2024-03-31] MEDS: HEPARIN 5000 UNITS SC (07:50)
[2024-03-31] MEDS: DELTASONE 7.5 MG PO (07:50)
[2024-03-31] MEDS: NEURONTIN 100 MG PO (07:50)
[2024-03-31] MEDS: FLOMAX 0.4 MG PO (07:50)
[2024-03-31] MEDS: ENVARSUS XR 4 MG PO (07:50)
--- NOTE | 2024-03-31 08:22 | W.PN.HOSP.TC ---
Addendum entered and electronically signed by Inessa Wall MD 03/31/24 13:18:
total DC time 38 min
Original Note:
Today's Communication/Plan
-
see A/P
Assessment / Plan
Assessment / Plan
HPI: 64 y/o male past medical history of IDDM, hypertension and renal transplant who presented with vomiting and elevated blood sugar.
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 In the afternoon he started experiencing elevated blood sugars and intractable vomiting.
Symptoms persisted and he changed his insulin pump again. Due to persistent vomiting he came to the emergency department for evaluation. He denies abdominal pain or diarrhea. He denies fevers, sweats or chills.
A/P:
# DKA with Anion gap metabolic acidosis, secondary to Insulin Pump Malfunction
# Persistent Vomiting, resolved
gap closed, off insulin drip
transitioned back to own insulin pump with good BG control
Appreciate DM GARAGE MECHANIC assistance
# Leucocytosis, suspect reactive and steroid effect, improved
No fever and pt non-toxic appearing
blood cultures x2 so far negative (checked with micro lab)
# Hiccup
Thorazine x1 dose
# Renal Transplant
Continue prednisone and tacrolimus
Check tacrolimus level
# Essential Hypertension
Continue losartan
# Hyperlipidemia
Continue atorvastatin
# Diabetic Neuropathy
Continue gabapentin
# BPH
Continue tamsulosin
DVT proph: SC Heparin
Code Status: Full Code
Anticipated Discharge: Today
Subjective/Interval History
-
Date of Service: March 31, 2024
Objective Data
-
Labs:
Laboratory Results
03/31/24
05:41
WBC 13.8 H
Hgb 13.8
Hct 41.7
Plt Count 194
Sodium 137
Potassium 4.1
Chloride 102
Carbon Dioxide 32 H
BUN 37 H
Creatinine 1.6 H
Glucose 110 H
Calcium 8.8
Vital Signs:
Vital Signs
Temp Pulse Resp BP Pulse Ox
37.2 C 85 18 155/83 96
03/31/24 04:32 03/31/24 07:50 03/31/24 06:00 03/31/24 07:50 03/31/24 07:11
I&O
03/30/24 03/31/24 04/01/24
06:59 06:59 06:59
Intake Total 2795 / 2795 240 / 240
Output Total 1800 / 1800
Balance 995 / 995 240 / 240
Review of Systems
-
All other systems: Reviewed and negative
Physical Exam
-
General: Well Developed, Well Nourished, No Apparent Distress, Comfortable and Conversant
HEENT: Normocephalic and Atraumatic
Respiratory: Clear to Auscultation and Non Labored Respirations; Negative Wheezes or Accessory Resp Muscle Use
Cardiac: Regular Rhythm and S1/S2
Breast: Deferred by me
GI: Soft, Nontender and Nondistended
Rectal: Deferred by Provider
Genito-urinary: Deferred by me
Musculoskeletal: No Clubbing, No Cyanosis and No Edema
Skin: Warm
Neuro: Awake
Psych: Calm and Intact Judgement/Insight
Data Reviewed
-
Labs: Labs Reviewed by me
[2024-03-31] MEDS: THORAZINE 10 MG PO (08:42)
--- NOTE | 2024-03-31 10:16 | W.PN.NEPH.PH ---
Today's Communication / Plan
-
await FK
Assessment/Plan
-
Assessment:
DKA
DELON
ESRD s/p [facility] 09/2022-Dr Robertson
CKD -baseline cr 1.6-1.9
hyperkalemia
Persistent Vomiting
Leucocytosis
Hyperlipidemia
Diabetic Neuropathy
BPH
HTN
DM1 with microvascular complications
Albuminuria
EBV viremia
Plan:
follow BMP
await FK level from 03/29
-
-
Date of Service: March 31, 2024
CC / HPI / ROS
-
Chief Complaint:
Nausea vomiting
History of Present Illness:
Cr down to 1.6
FK pending
BP stable
Review of Systems:
Denies chest pain shortness of breath
Labs
-
Labs:
WBC 13.8 10^3/uL (4.8-10.8) H 03/31/24 05:41
RBC 4.68 10^6/uL (4.70-6.10) L 03/31/24 05:41
Hgb 13.8 g/dL (13.0-18.0) 03/31/24 05:41
Hct 41.7 % (39.0-52.0) 03/31/24 05:41
Plt Count 194 10^3/uL (130-400) 03/31/24 05:41
Sodium 137 mmol/L (135-145) 03/31/24 05:41
Potassium 4.1 mmol/L (3.5-5.1) 03/31/24 05:41
Chloride 102 mmol/L (98-107) 03/31/24 05:41
Carbon Dioxide 32 mmol/L (22-30) H 03/31/24 05:41
BUN 37 mg/dl (9-20) H 03/31/24 05:41
Creatinine 1.6 mg/dL (0.7-1.3) H 03/31/24 05:41
eGFR 47.82 03/31/24 05:41
Glucose 110 mg/dl (70-99) H 03/31/24 05:41
Calcium 8.8 mg/dl (8.4-10.2) 03/31/24 05:41
Albumin 5.2 g/dl (3.5-5.0) H 03/28/24 16:04
Physical Exam
-
Vital Signs:
Vital Signs
Temp Pulse Resp BP Pulse Ox
99.8 F 93 21 147/80 96
03/31/24 07:05 03/31/24 10:00 03/31/24 10:00 03/31/24 10:00 03/31/24 07:11
Cardiovascular:: Regular rate and rhythm
Respiratory:: Bilateral: Coarse
Lung Excursion:: Normal
Abdomen:: Nontender and Soft
Bowel Sounds:: Normal
Extremity Edema:: None: Bilateral:
[2024-03-31 11:15] LABS: Glucose - Point of Care 104 mg/dl (70-99)
[2024-03-31] MEDS: PT'S OWN INSULIN PUMP - NovoLOG SC (11:34)
[2024-03-31] MEDS: TUMS CHEWABLE TABLET 200 MG PO (11:41)
--- NOTE | 2024-03-31 12:18 | PTCARENOTE ---
discharge orders in, VSS, blood sugar stable, to grape picker
--- NOTE | 2024-03-31 13:11 | W.DCSUMMARY ---
Discharge Summary
Discharge Data
Date of Admission: 03/28/24
Date of Discharge: 03/31/24
-
Pending Results: No
Hospital Course
Principal Diagnosis:
Diabetes ketoacidosis (DKA) with Anion gap metabolic acidosis, secondary to Insulin Pump Malfunction
Leucocytosis, suspect reactive and steroid effect, improved
Chronic Diagnoses:�
Insulin-dependent diabetes, on own insulin pump
Renal Transplant, on prednisone and tacrolimus
Essential Hypertension, on losartan
Hyperlipidemia on atorvastatin
Diabetic Neuropathy, on gabapentin
Benign prostate hypertrophy on tamsulosin
Consultations:�
Diabetes nurse practitioner
Nephrology
Procedures:�
None
Clinical course:�
This is a 64-year-old male with past medical history as stated above, who presented with nausea, vomiting and hyperglycemia.
Apparently he changed his insulin pump the day prior to admission.
Problem 1:
DKA with Anion gap metabolic acidosis, secondary to Insulin Pump Malfunction.
He was treated with insulin drip for his DKA, and was subsequently transitioned back to his own insulin pump.
His sugar was well-controlled on on insulin pump.
Problem 2:
Leucocytosis, reactive due to DKA and steroid effect, improved.
He had no fever and was nontoxic-appearing.
Blood cultures x2 were sent this admission and were negative at the time of discharge.
As for the rest of his medical problems, they were stable during his hospital stay.
Discharge Plan
-
Patient Disposition: Home (Routine Discharge)
Discharge Diagnosis/Procedures: Diabetes ketoacidosis due to insulin pump malfunction
Condition: Good
Diet: As tolerated and Diabetic, Carb Controlled
Activity: As tolerated
Driving Restrictions: As prior to admission
Referrals:
Javier Jason MD [Family Provider] - in less than 1 week
Prescriptions:
Continued
Pt Own Insulin Pump
1 dose SC .CONTINUOUS
tamsulosin 0.4 mg Capsule
0.4 mg PO DAILY Qty: 30 0RF
losartan 50 mg Tablet
50 mg PO DAILY
atorvastatin 10 mg Tablet
10 mg PO HS
prednisone 2.5 mg Tablet
7.5 mg PO DAILY
gabapentin 100 mg Capsule
100 mg PO DAILY
gabapentin 100 mg Capsule
200 mg PO QPM
tacrolimus 4 mg Tablet Extended Release 24 Hr
4 mg PO DAILY
Discharge Orders:
Discharge Patient (As Directed); Ordered 03/31/24
Ordered By: Inessa Wall
Discharge Date and Time
Discharge Date/Time: 03/31/24 12:14
Print Language: MALAWIAN
== END 2024-03-31 12:14 | disposition home or self-care (01) | DRG 919 ==
LOC: IMU 21:59
PROVIDERS: Nurse Practitioner Family; Physician Assistant Medical; ADMITTING PHYSICIAN Internal Medicine; ATTENDING PHYSICIAN Internal Medicine; CONSULT PHYSICIAN Internal Medicine; EMERGENCY PHYSICIAN Emergency Medicine; FAMILY PHYSICIAN Family Medicine
DX: T85.694A Other mechanical complication of insulin pump, initial encounter (principal); E10.10 Type 1 diabetes mellitus with ketoacidosis without coma; D84.821 Immunodeficiency due to drugs; N17.9 Acute kidney failure, unspecified; Z94.0 Kidney transplant status; T38.3X6A Underdosing of insulin and oral hypoglycemic [antidiabetic] drugs, initial encounter; E10.40 Type 1 diabetes mellitus with diabetic neuropathy, unspecified; E78.5 Hyperlipidemia, unspecified; I10 Essential (primary) hypertension; N40.0 Benign prostatic hyperplasia without lower urinary tract symptoms; N18.9 Chronic kidney disease, unspecified; E87.5 Hyperkalemia; B27.00 Gammaherpesviral mononucleosis without complication; T38.0X5A Adverse effect of glucocorticoids and synthetic analogues, initial encounter; Y74.2 Prosthetic and other implants, materials and accessory general hospital and personal-use devices associated with adverse incidents; Z83.3 Family history of diabetes mellitus; Z84.1 Family history of disorders of kidney and ureter; Z79.899 Other long term (current) drug therapy; Z79.621 Long term (current) use of calcineurin inhibitor; Z79.51 Long term (current) use of inhaled steroids
CPT/HCPCS: 80048; 80053; 80197; 81003; 81015; 82010; 82805; 82947; 82962; 83036; 85025; 85027; 87040; 93005; 96361; 96374; 96375; 96376; 99285